=== PATIENT | male | born 1975 | race Caucasian/White ===

== ENCOUNTER 2016-09-12 18:52 | Emergency (ER) | payer SELFPAY ==
[~2016-09-12] VITALS: Ht 175.3 cm; Wt 103.2 kg
[2016-09-12 19:00] VITALS: PULSE 54; RESP 28; TEMP 97.9; O2SAT 98
[2016-09-12 19:09] VITALS: BP 172/81; PULSE 53; RESP 26; O2SAT 99
[2016-09-12] MEDS ORDERED: ONDANSETRON HCL 4 MG/2 ML VIAL IV PUSH ONE (19:45)
[2016-09-12] MEDS ORDERED: MORPHINE SULFATE 4 MG/ML INJ IV PUSH ONE (19:45)
[2016-09-12 19:59] LABS: BLOOD, URINE LARGE (NEG); GLUCOSE,URINE NEG (NEG); KETONE, URINE 40 mg/dL (NEG); NITRITE,URINE NEG (NEG)
--- NOTE | 2016-09-12 20:01 | PD ---
HPI Chief Complaint: Abdominal Pain Time Seen by Provider: 19:28 Travel History International Travel<30 days: No Contact w/Intl Traveler<30days: No Traveled to known affect area: No History of Present Illness HPI 40-year-old male complains of low abdominal pain and nausea and dysuria. Patient states that the symptoms started this morning. Patient states that the abdominal pain is cramping pain and sharp pain localized to lower abdomen. Patient denies any pain radiation. Patient denies any fever chills. Patient states that he has dysuria and decreased urine output since this afternoon. Patient denies any headache. Patient denies any chest pain or shortness of breath. Patient states that he has nausea but no vomiting or diarrhea. Patient stated that he has constipation. On a scale of 1-10 the pain is a 10. Patient is a smoker and drinks 2-6 beers daily. PFSH Past Medical History Diminished Hearing: No Immunizations Current: Yes Pneumonia: Yes (DECEMBER 2010) Tetanus Vaccination: > 5 Years Influenza Vaccination: No Social History Alcohol Use: Yes (2-6 BEERS DAILY) Tobacco Use: Yes (1 PPD) Substance Use: No Allergies-Medications (Allergen,Severity, Reaction): Coded Allergies: Bee Sting (Verified Allergy, Severe, Swelling, 09/12/16) Codeine (Verified Allergy, Unknown, 09/12/16) Reported Meds & Prescriptions Reported Meds & Active Scripts Active No Active Prescriptions or Reported Medications Review of Systems General / Constitutional: No: Fever Eyes: No: Visual changes HENT: No: Headaches Cardiovascular: No: Chest Pain or Discomfort Respiratory: No: Shortness of Breath Gastrointestinal: Positive: Nausea, Abdominal Pain Genitourinary: Positive: Decreased Urinary Output, No: Dysuria Musculoskeletal: No: Pain Skin: No Rash Neurologic: No: Weakness Psychiatric: No: Depression Endocrine: No: Polydipsia Hematologic/Lymphatic: No: Easy Bruising Physical Exam Narrative GENERAL: Well-nourished, well-developed patient. SKIN: Focused skin assessment warm/dry. HEAD: Normocephalic. EYES: No scleral icterus. No injection or drainage. NECK: Supple, trachea midline. No JVD or lymphadenopathy. CARDIOVASCULAR: Regular rate and rhythm without murmurs, gallops, or rubs. RESPIRATORY: Breath sounds equal bilaterally. No accessory muscle use. GASTROINTESTINAL: Abdomen soft, nondistended. Moderate tenderness on palpation lower abdomen. No rebound tenderness. MUSCULOSKELETAL: No cyanosis, or edema. BACK: Nontender without obvious deformity. No CVA tenderness. Neurologic exam normal. Data Data Last Documented VS Vital Signs Date Time Temp Pulse Resp B/P Pulse Ox O2 Delivery O2 Flow Rate FiO2 09/12/16 20:15 16 09/12/16 20:13 52 167/99 95 Room Air 09/12/16 19:00 97.9 Orders Complete Blood Count With Diff (09/12/16 19:33) Comprehensive Metabolic Panel (09/12/16 19:33) Prothrombin Time / Inr (Pt) (09/12/16 19:33) Act Partial Throm Time (Ptt) (09/12/16 19:33) Urinalysis - C+S If Indicated (09/12/16 19:33) Iv Access Insert/Monitor (09/12/16 19:33) Ecg Monitoring (09/12/16 19:33) Oximetry (09/12/16 19:33) Urinary Catheter Insert/Apply (09/12/16 19:33) Morphine Inj (Morphine Inj) (09/12/16 19:45) Ondansetron Inj (Zofran Inj) (09/12/16 19:45) Sodium Chlor 0.9% 1000 Ml Inj (Ns 1000 M (09/12/16 20:15) Ct Abd/Pel W/O Iv Contrast (09/12/16 20:25) Labs Laboratory Tests Test 09/12/16 19:30 White Blood Count 17.7 TH/MM3 Red Blood Count 5.43 MIL/MM3 Hemoglobin 15.5 GM/DL Hematocrit 46.3 % Mean Corpuscular Volume 85.2 FL Mean Corpuscular Hemoglobin 28.5 PG Mean Corpuscular Hemoglobin 33.5 % Concent Red Cell Distribution Width 13.5 % Platelet Count 375 TH/MM3 Mean Platelet Volume 7.4 FL Neutrophils (%) (Auto) 88.2 % Lymphocytes (%) (Auto) 8.1 % Monocytes (%) (Auto) 3.0 % Eosinophils (%) (Auto) 0.4 % Basophils (%) (Auto) 0.3 % Neutrophils # (Auto) 15.6 TH/MM3 Lymphocytes # (Auto) 1.4 TH/MM3 Monocytes # (Auto) 0.5 TH/MM3 Eosinophils # (Auto) 0.1 TH/MM3 Basophils # (Auto) 0.1 TH/MM3 CBC Comment DIFF FINAL Differential Comment Prothrombin Time 10.4 SEC Prothromb Time International 0.9 RATIO Ratio Activated Partial 20.3 SEC Thromboplast Time Urine Color YELLOW Urine Turbidity CLEAR Urine pH 5.0 Urine Specific [place] 1.028 Urine Protein 30 mg/dL Urine Glucose (UA) NEG mg/dL Urine Ketones 40 mg/dL Urine Occult Blood LARGE Urine Nitrite NEG Urine Bilirubin NEG Urine Leukocyte Esterase NEG Urine RBC 0-3 /hpf Microscopic Urinalysis Comment CULT NOT INDICATED Sodium Level 141 MEQ/L Potassium Level 3.6 MEQ/L Chloride Level 106 MEQ/L Carbon Dioxide Level 23.3 MEQ/L Anion Gap 12 MEQ/L Blood Urea Nitrogen 18 MG/DL Creatinine 1.60 MG/DL Estimat Glomerular Filtration 48 ML/MIN Rate Random Glucose 105 MG/DL Calcium Level 9.2 MG/DL Total Bilirubin 0.5 MG/DL Aspartate Amino Transf 26 U/L (AST/SGOT) Alanine Aminotransferase 42 U/L (ALT/SGPT) Alkaline Phosphatase 74 U/L Total Protein 8.3 GM/DL Albumin 4.4 GM/DL [facility] Medical Decision Making Medical Screen Exam Complete: Yes Emergency Medical Condition: Yes Interpretation(s) 2022 PM. CBC WBC 17.7. 88 neutrophil. CMP within normal limit. Creatinine 1.60. UA dipstick positive for blood. 21:[address] scan abdomen pelvis shows hydronephrosis left kidney could be due secondary to radiopaque stone Differential Diagnosis Differential diagnosis including urinary retention, UTI, pyelonephritis, nephrolithiasis, colitis, appendicitis. Narrative Course 40-year-old male with low abdominal pain and decreasing urine output and dysuria today. Forbes catheter inserted. Normal saline solution 1 25 cc an hour. Morphine 4 mg IV. Zofran 4 mg IV. 22:16 PM. Patient states that he is feeling much better now. I spoke with urologist on-call, Dr. Pino. Advised for patient to follow-up with him in the office. Diagnosis Primary Impression: Nephrolithiasis Patient Instructions: General Instructions Additional Instructions: Encourage by mouth fluids. Take medications as needed for pain. Follow-up with urologist. Return if intractable pain, persistent vomiting, fever. Med/Other Pt SpecificInfo: Prescription(s) given Scripts Promethazine (Phenergan)25 Mg Tab25 Mg PO Q6H PRN (Nausea/Vomiting) #12 TAB Ref 0 Prov:Laith Ayon MD 09/12/16 Tamsulosin (Flomax)0.4 Mg Cap0.4 Mg PO HS #10 CAP Ref 0 Prov:Laith Ayon MD 09/12/16 Hydrocodone-Acetaminophen ([place])5-325 mg Tab1 Tab PO Q6H PRN (PAIN) #20 TAB Prov:Laith Ayon MD 09/12/16 Disposition: 01 DISCHARGE HOME Condition: Stable Laith Ayon MD Sep 12, 2016 20:01
[2016-09-12 20:03] LABS: CHLORIDE 106 MEQ/L (98-107); POTASSIUM 3.6 MEQ/L (3.5-5.1); SODIUM (NA) 141 MEQ/L (136-145)
[2016-09-12 20:06] VITALS: PULSE 52; RESP 18; O2SAT 95
[2016-09-12 20:07] LABS: ANION GAP 12 MEQ/L (5-15); BICARBONATE 23.3 MEQ/L (21.0-32.0); BLOOD UREA NITROGEN 18 MG/DL (7-18)
[2016-09-12 20:10] LABS: ALT (GPT) 42 U/L (12-78); AST (GOT) 26 U/L (15-37); GLOMERULAR FILTRATION RATE 48 ML/MIN (>89)
[2016-09-12 20:11] LABS: AUTOMATED NEUTROPHIL # 15.6 TH/MM3 (1.8-7.7); BASOPHIL # 0.1 TH/MM3 (0-0.2); BASOPHIL % 0.3 % (0.0-2.0); EOSINOPHIL # 0.1 TH/MM3 (0-0.4); EOSINOPHIL % 0.4 % (0.0-4.0); HEMATOCRIT 46.3 % (39.0-51.0); LYMPH % 8.1 % (9.0-44.0); LYMPHOCYTE # 1.4 TH/MM3 (1.0-4.8); MEAN CELL VOLUME 85.2 FL (80.0-100.0); MEAN CORPUSCULAR HEMOGLOBIN 28.5 PG (27.0-34.0); MEAN CORPUSCULAR HGB CONC 33.5 % (32.0-36.0); NEUT % 88.2 % (16.0-70.0); PLATELET COUNT 375 TH/MM3 (150-450); RED BLOOD COUNT 5.43 MIL/MM3 (4.50-5.90); RED CELL DISTRIBUTION WIDTH 13.5 % (11.6-17.2); WHITE BLOOD COUNT 17.7 TH/MM3 (4.0-11.0)
[2016-09-12 20:12] LABS: TOTAL BILIRUBIN ADULT 0.5 MG/DL (0.2-1.0)
[2016-09-12 20:13] VITALS: BP 167/99; PULSE 52; RESP 16; O2SAT 95
[2016-09-12 20:13] LABS: ALKALINE PHOSPHATASE 74 U/L (45-117); HEMO FLAGS DIFF FINAL
[2016-09-12] MEDS ORDERED: SODIUM CHLOR 0.9% 1000 ML INJ 1,000 ML IV SCH (20:15)
[2016-09-12 20:18] LABS: APTT (PATIENT) 20.3 SEC (24.3-30.1); INTERNATIONAL NORMALIZED RATIO 0.9 RATIO; PROTHROMBIN TIME - PATIENT 10.4 SEC (9.8-11.6); URINE COLOR YELLOW (YELLW/STRAW)
[2016-09-12 20:19] LABS: COMMENT (UR) CULT NOT INDICATED; CULTURE IF INDICATED CULT NOT INDICATED; RBC, URINE 0-3 /hpf (0-3)
--- NOTE | 2016-09-12 21:54 | RADHPO ---
EXAM DATE/TIME: 09/12/2016 21:25 [facility] COMPARISON: No previous studies available for comparison. INDICATIONS : Bilateral lower quadrant pain with nausea beginning today. ORAL CONTRAST: No oral contrast ingested. RADIATION DOSE: 27.19 CTDIvol (mGy) MEDICAL HISTORY : None SURGICAL HISTORY : None. ENCOUNTER: Initial ACUITY: 1 day PAIN SCALE: 6/10 LOCATION: Bilateral lower quadrant TECHNIQUE: Volumetric scanning of the abdomen and pelvis was performed. Using automated exposure control and adjustment of the mA and/or kV according to patient size, radiation dose was kept as low as reasonably achievable to obtain optimal diagnostic quality images. FINDINGS: CT Abdomen: The liver, spleen, pancreas, right kidney, adrenals are unremarkable. There is hydronephr osis in the left kidney and to a slight degree with strandy densities in the left perinephric space a nd slightly prominent ureter without definite stones. There is no evidence for any appreciable pathol ogical adenopathy, free fluid, or bowel obstruction. CT pelvis: There is no evidence for mass, abscess formation, or any significant adenopathy within the pelvis. There is slight fluid in the cul-de-sac. CONCLUSION: Hydronephrosis in the left kidney could be due to a known radiopaque stone, however t he exact etiology is not certain. Denver Carreon MD on September 12, 2016 at 21:47 Board Certified Radiologist. This report was verified electronically.
[2016-09-12] MEDS ORDERED: NORC5TAB PO (22:18)
[2016-09-12] MEDS ORDERED: PROM25TA5 PO (22:18)
[2016-09-12] MEDS ORDERED: TAMS5CAP PO (22:18)
[2016-09-12 22:30] VITALS: BP 131/71; PULSE 55; RESP 18; O2SAT 97
== END 2016-09-12 23:04 | disposition home or self-care (01) ==
LOC: PHED 18:52
DX: N20.0 Calculus of kidney (principal); R30.0 Dysuria; R11.0 Nausea; K59.00 Constipation, unspecified; F17.210 Nicotine dependence, cigarettes, uncomplicated
CPT/HCPCS: 51702; 74176; 80053; 81001; 85025; 85610; 85730; 96361; 96374; 96375; 99284; J2270; J2405; J7030